=== PATIENT | female | born 1995 ===

== ENCOUNTER 2021-12-02 14:12 | Outpatient (CLI) | payer OTHER | END 2021-12-02 15:49 | disposition home or self-care (01) | LOC: PRENATAL 14:12 | PROVIDERS: ATTEND Obstetrics & Gynecology Maternal & Fetal Medicine | DX: O35.0XX0 Maternal care for (suspected) central nervous system malformation in fetus, not applicable or unspecified (principal); O35.3XX0 Maternal care for (suspected) damage to fetus from viral disease in mother, not applicable or unspecified; Z3A.21 21 weeks gestation of pregnancy ==

== ENCOUNTER 2022-02-16 08:47 | Outpatient (CLI) | payer OTHER | END 2022-02-16 10:00 | disposition home or self-care (01) | LOC: PRENATAL 08:47 | PROVIDERS: ATTEND Obstetrics & Gynecology Maternal & Fetal Medicine | DX: O26.849 Uterine size-date discrepancy, unspecified trimester (principal); O36.8199 Decreased fetal movements, unspecified trimester, other fetus; Z3A.32 32 weeks gestation of pregnancy ==

== ENCOUNTER 2022-03-31 13:00 | Inpatient (IN) | payer OTHER ==
[~2022-03-31] VITALS: Ht 177.8 cm; Wt 104.3 kg
[2022-04-04] MEDS ORDERED: PRENATAL CAPLE1 EAC1 PO (05:01)
== END 2022-04-06 15:19 | disposition home or self-care (01) | DRG 807 ==
LOC: LDR 04-04 04:53 → OB/GYN 04-04 04:53
PROVIDERS: ADMIT Student in an Organized Health Care Education/Training Program; ATTEND Student in an Organized Health Care Education/Training Program
PROC: 10E0XZZ Delivery of Products of Conception, External Approach (ICD-10-PCS; principal; 2022-04-04)
PROC: 0W8NXZZ Division of Female Perineum, External Approach (ICD-10-PCS; 2022-04-04)
PROC: 4A1HXCZ Monitoring of Products of Conception, Cardiac Rate, External Approach (ICD-10-PCS; 2022-04-04)
DX: O99.820 Streptococcus B carrier state complicating pregnancy (principal); Z3A.39 39 weeks gestation of pregnancy; Z37.0 Single live birth; Z20.822 Contact with and (suspected) exposure to COVID-19